=== PATIENT | male | born 1995 | race Caucasian/White ===

== ENCOUNTER 2021-04-21 19:35 | Inpatient (IN) | payer OTHER ==
[~2021-04-21] VITALS: Ht 177.8 cm; Wt 86.2 kg
[2021-04-21 20:57] LABS: HEMOGLOBIN 14.2 gm/dl (14.0-17.5); RED BLOOD COUNT 4.79 M/UL (4.20-5.50)
[2021-04-21 21:31] LABS: BUN/CREATININE RATIO 20 (0-10)
[2021-04-22] MEDS ORDERED: No home meds (03:20)
[2021-04-22 12:21] LABS: ACINETOBACTER BAUMANNII Not Detected (Negative); CANDIDA ALBICANS Not Detected (Negative); CANDIDA KRUSEI Not Detected (Negative); CANDIDA TROPICALIS Not Detected (Negative); ENTEROCOCCUS Not Detected (Negative); ESCHERICHIA COLI Not Detected (Negative); HAEMOPHILUS INFLUENZAE Not Detected (Negative); KLEBSIELLA OXYTOCA Not Detected (Negative); KLEBSIELLA PNEUMONIAE Not Detected (Negative); KPC-CARBAPENEM-RESISTANCE GENE Not Detected (Negative); PROTEUS Not Detected (Negative); PSEUDOMONAS AERUGINOSA Not Detected (Negative); SERRATIA MARCESANS Not Detected (Negative); STREP AGALACTIAE (GROUP B) Not Detected (Negative); STREP PYOGENES (GROUP A) Not Detected (Negative); STREPTOCOCCUS Not Detected (Negative); vanA/B (VANCOMYCIN RESIST GENE Not Detected (Negative)
[2021-04-22 12:23] LABS: STAPHYLOCOCCUS DETECTED (Negative); STAPHYLOCOCCUS AUREUS DETECTED (Negative); mecA (METHICILLIN RESIST GENE DETECTED (Negative)
[2021-04-23 06:10] LABS: HEMOGLOBIN 12.5 gm/dl (14.0-17.5); WHITE BLOOD COUNT 11.9 K/UL (4.5-11.0)
[2021-04-23 06:11] LABS: RED BLOOD COUNT 4.28 M/UL (4.20-5.50)
[2021-04-23 06:39] LABS: BUN/CREATININE RATIO 16 (0-10)
[2021-04-23 08:14] LABS: HBSAG SCREEN Negative (Negative); HEP A AB, IGM Negative (Negative); HEP B CORE AB, IGM Negative (Negative); HEP C VIRUS AB >11.0 (0.0-0.9)
[2021-04-23 15:10] LABS: FINAL INTERPRETATION Negative (.); HIV 1 AB Negative (Negative); HIV 2 AB Negative (Negative)
[2021-04-25 07:41] LABS: HEMOGLOBIN 12.1 gm/dl (14.0-17.5); RED BLOOD COUNT 4.29 M/UL (4.20-5.50); WHITE BLOOD COUNT 12.7 K/UL (4.5-11.0)
[2021-04-25 08:29] LABS: BUN/CREATININE RATIO 16 (0-10)
[2021-04-27 05:43] LABS: HEMOGLOBIN 12.5 gm/dl (14.0-17.5); RED BLOOD COUNT 4.35 M/UL (4.20-5.50); WHITE BLOOD COUNT 12.1 K/UL (4.5-11.0)
[2021-04-27 06:07] LABS: BUN/CREATININE RATIO 14 (0-10)
[2021-04-29 05:46] LABS: HEMOGLOBIN 12.1 gm/dl (14.0-17.5); RED BLOOD COUNT 4.28 M/UL (4.20-5.50)
[2021-04-29 06:14] LABS: BUN/CREATININE RATIO 16 (0-10)
--- NOTE | 2021-04-29 14:02 | NUR ---
TELEPHONE ORDER FOR REGULAR DIET, KATHY WILL NOT BE COMPLETED UNTIL IN THE A.M. PATIENT WILL BE NPO AFTER MIDNIGHT. PATIENT AWARE.
[2021-04-29 17:14] LABS: HCV AB >11.0 (0.0-0.9); HCV RNA NAA QUALITATIVE Positive (Negative)
[2021-04-30 13:02] LABS: HEMOGLOBIN 12.2 gm/dl (14.0-17.5); RED BLOOD COUNT 4.22 M/UL (4.20-5.50); WHITE BLOOD COUNT 11.3 K/UL (4.5-11.0)
[2021-04-30 15:26] LABS: BUN/CREATININE RATIO 18 (0-10)
[2021-05-01 10:05] LABS: RED BLOOD COUNT 4.16 M/UL (4.20-5.50); WHITE BLOOD COUNT 10.6 K/UL (4.5-11.0)
--- NOTE | 2021-05-01 10:21 | NUR ---
1000- NOTIFIED DR CONNOR OF BLOOD CULTURE RESULTS. NO NEW ORDERS
[2021-05-01 10:27] LABS: BUN/CREATININE RATIO 16 (0-10)
== END 2021-05-01 20:49 | disposition short-term general hospital (02) | DRG 871 ==
LOC: ER1 19:35 → CDU 23:27 → MED SURG 4 23:27
PROVIDERS: Internal Medicine; Student in an Organized Health Care Education/Training Program; ADMIT Internal Medicine
PROC: B24BZZ4 Ultrasonography of Heart with Aorta, Transesophageal (ICD-10-PCS; principal; 2021-04-22)
DX: A41.02 Sepsis due to Methicillin resistant Staphylococcus aureus (principal); I33.0 Acute and subacute infective endocarditis; I26.90 Septic pulmonary embolism without acute cor pulmonale; K92.1 Melena; Z20.822 Contact with and (suspected) exposure to COVID-19; B19.20 Unspecified viral hepatitis C without hepatic coma; F11.10 Opioid abuse, uncomplicated; I80.9 Phlebitis and thrombophlebitis of unspecified site; F32.A Depression, unspecified; F41.9 Anxiety disorder, unspecified; I08.1 Rheumatic disorders of both mitral and tricuspid valves; I27.20 Pulmonary hypertension, unspecified; G47.00 Insomnia, unspecified; F32.9 Major depressive disorder, single episode, unspecified; Z82.49 Family history of ischemic heart disease and other diseases of the circulatory system
CPT/HCPCS: ECHO; 36415; 71046; 73030; 73110; 80053; 80074; 80202; 81001; 82550; 82553; 82570; 83605; 83690; 83874; 84156; 84484; 85025; 85027; 85379; 85652; 86140; 86701; 86702; 86803; 87040; 87077; 87150; 87186; 93005; 93306; 93312; 93320; 93971; 96374; 96375; 99285; C1751; G0378; J0696; J0878; J1200; J1650; J1885; J2001; J2250; J2270; J2310; J2370; J2405; J2704; J3010; J3370; J7030; J7050; J7060; J7070; Q9967; U0002

== ENCOUNTER 2021-05-30 09:34 | Emergency (ER) | payer OTHER ==
[~2021-05-30 09:34] MED LIST: No home meds
[2021-05-30 10:45] LABS: HEMOGLOBIN 11.9 gm/dl (14.0-17.5); RED BLOOD COUNT 4.08 M/UL (4.20-5.50); WHITE BLOOD COUNT 14.8 K/UL (4.5-11.0)
[2021-05-30 11:01] LABS: BUN/CREATININE RATIO 17 (0-10)
[2021-05-31 03:04] LABS: ACINETOBACTER BAUMANNII Not Detected (Negative); CANDIDA ALBICANS Not Detected (Negative); CANDIDA KRUSEI Not Detected (Negative); CANDIDA TROPICALIS Not Detected (Negative); ENTEROCOCCUS Not Detected (Negative); ESCHERICHIA COLI Not Detected (Negative); HAEMOPHILUS INFLUENZAE Not Detected (Negative); KLEBSIELLA OXYTOCA Not Detected (Negative); KLEBSIELLA PNEUMONIAE Not Detected (Negative); KPC-CARBAPENEM-RESISTANCE GENE Not Detected (Negative); PROTEUS Not Detected (Negative); PSEUDOMONAS AERUGINOSA Not Detected (Negative); SERRATIA MARCESANS Not Detected (Negative); STREP AGALACTIAE (GROUP B) Not Detected (Negative); STREP PYOGENES (GROUP A) Not Detected (Negative); STREPTOCOCCUS Not Detected (Negative); vanA/B (VANCOMYCIN RESIST GENE Not Detected (Negative)
[2021-05-31 05:40] LABS: mecA (METHICILLIN RESIST GENE DETECTED (Negative)
[2021-05-31 05:41] LABS: STAPHYLOCOCCUS DETECTED (Negative); STAPHYLOCOCCUS AUREUS DETECTED (Negative)
== END 2021-05-30 13:08 | disposition left against medical advice (07) ==
LOC: ER1 09:34
PROVIDERS: Physician Assistant
DX: I26.99 Other pulmonary embolism without acute cor pulmonale (principal); Z20.822 Contact with and (suspected) exposure to COVID-19
CPT/HCPCS: 80053; 80307; 81001; 82550; 82553; 83605; 83874; 84484; 85025; 85652; 86140; 87040; 87077; 87150; 87186; 93005; 99285; J7030; Q9967; U0002